=== PATIENT | female | born 1955 | race Two or more races ===

== ENCOUNTER 2019-03-01 14:15 | Emergency (ER) | payer BC, OTHER ==
[~2019-03-01] VITALS: Ht 162.6 cm; Wt 55.0 kg
[2019-03-01 14:28] VITALS: BP 151/84
--- NOTE | 2019-03-01 14:40 | NUR ---
DR BONILLA AT BEDSIDE TO [facility] PT. 63 YR OLD FEMALE HERE WITH C/O "NOTHING GOES DOWN" HAD TURKEY LAST NIGHT AND "ALL OF A SUDDEN REALIZED NOTHING ELSE WAS GOING DOWN" PT UNABLE TO SWALLOW SALIVA, PT SPITTING INTO A CUP. PT PLACED ON MONITORS.
[2019-03-01] MEDS ORDERED: SODIUM CHLORIDE FLUSH 10ML SYR IVF ONE (15:00)
--- NOTE | 2019-03-01 15:03 | NUR ---
REPORT TO JAMIN LENZ.
--- NOTE | 2019-03-01 15:31 | NUR ---
LUNCH RN: MD TO BEDSIDE TO UPDATE PT AND FAMILY, AWAITING CALL BACK FROM GI
[2019-03-01] MEDS ORDERED: FENTANYL PF 100 MCG/2ML ONE (15:52)
[2019-03-01] MEDS ORDERED: MIDAZOLAM 1 MG/ML, 2ML ONE (15:52)
--- NOTE | 2019-03-01 16:31 | NUR ---
LUNCH RN: ENDOSCOPY COMPLETED BY DR. YUAN, BIOPSY COLLECTED. PT CURRENTLY RECOVERING AT THIS TIME. VSS. WILL CONTINUE TO MONITOR UNTIL PT FULLY RECOVERED
[2019-03-01] MEDS ORDERED: FENTANYL PF 100 MCG/2ML IVPush ONE (17:00)
[2019-03-01] MEDS ORDERED: MIDAZOLAM 1 MG/ML, 5ML IVPush ONE (17:00)
--- NOTE | 2019-03-01 17:16 | NUR ---
Patient/Caregiver given discharge instructions and they have confirmed that they understand the instructions. Patient ambulatory with steady gait.
== END 2019-03-01 17:17 | disposition home or self-care (01) ==
LOC: ED 16:35
DX: T18.128A Food in esophagus causing other injury, initial encounter (principal); X58.XXXA Exposure to other specified factors, initial encounter; Y93.89 Activity, other specified; Y92.89 Other specified places as the place of occurrence of the external cause; Y99.8 Other external cause status
CPT/HCPCS: 43247; 99285; J2250; J3010; 88305